=== PATIENT | male | born 1995 | race African-American/Black ===

== ENCOUNTER 2021-06-10 19:49 | Emergency (ER) | payer OTHER ==
[~2021-06-10] VITALS: Ht 175.3 cm; Wt 59.0 kg
[2021-06-10 20:03] LABS: URINE BILIRUBIN NEGATIVE (Negative); URINE BLOOD TRACE (Negative); URINE COLOR YELLOW; URINE GLUCOSE-RANDOM* NEGATIVE (Negative); URINE KETONES TRACE (Negative); URINE NITRITE-REFLEX NEGATIVE (Negative); URINE PROTEIN (DIPSTICK) NEGATIVE (Negative); URINE SPECIFIC GRAVITY 1.025 (1.005-1.035)
[2021-06-10 20:05] LABS: URINE LEUKOCYTES-REFLEX 1+ (Negative)
[2021-06-10 20:06] LABS: URINE CLARITY CLOUDY
[2021-06-10 20:17] LABS: BACTERIA-REFLEX 1-9 Few /HPF (None Seen); CASTS None Seen /LPF (None Seen); CRYSTALS None Seen /LPF (None Seen); SQUAMOUS None Seen /LPF (0-3); URINE RBC 1-2 Rare /HPF (NONE SEEN); URINE WBC-REFLEX >25 Many /HPF (0-5)
[2021-06-10] MEDS ORDERED: DOXYCYCLINE 10100 MG PO (20:37)
[2021-06-10 21:15] VITALS: BP 110/56
== END 2021-06-10 21:16 | disposition home or self-care (01) ==
LOC: ER 19:49
PROVIDERS: Nurse Practitioner
DX: N39.0 Urinary tract infection, site not specified (principal); F12.90 Cannabis use, unspecified, uncomplicated; Z20.2 Contact with and (suspected) exposure to infections with a predominantly sexual mode of transmission